=== PATIENT | male | born 1925 | race Caucasian/White ===

== ENCOUNTER 2017-06-03 16:47 | Inpatient (IN) | payer MEDICARE, BC ==
[~2017-06-03] VITALS: Ht 180.3 cm; Wt 43.4 kg
--- NOTE | ~2017-06-03 | EKG ---
PATIENT: NOEMI ABRAHAM UNIT #: [id number] Ventricular Rate: 149 BPM Atrial Rate: 133 BPM QRS Duration: 96 ms Q-T Interval: 324 ms QTC Calculation(Bezet): 510 ms Calculated R [place]: -8 degrees Calculated T [place]: 88 degrees Diagnosis Line: Atrial fibrillation with rapid ventricular Diagnosis Line: response Diagnosis Line: Low voltage QRS Diagnosis Line: Nonspecific ST and T wave abnormality , probably Diagnosis Line: digitalis effect Diagnosis Line: Abnormal ECG Diagnosis Line: Diagnosis Line: Confirmed by DONNELL NEIL MD ([id number]) on 06/08/2017 Diagnosis Line: 6:55:04 AM INTERPRETING MD: RASHAAD BRENNAN
--- NOTE | ~2017-06-03 | CR72 ---
[facility] A Service of [facility] RADIOLOGY TEXT RESULTS PATIENT: NOEMI ABRAHAM JR LOCATION: [place] [address] : [birth year] UNIT #: [id number] AGE: [address]: Prashanth Streeter MD SEX: M ORDER DR: [id number] [facility] [address]. [place], [place] [address] [id number] MR#: [id number] Acc #: [id number] NAME: NOEMI ABRAHAM JR : 1925 SEX: M STUDY DATE/TIME: 06/04/2017 4:59 UNIT: [facility] ROOM: [facility] STUDY DESCRIPTION: CR Chest Single View Portable Attending Physician: Prashanth Streeter M.D. Ordering Physician: Prashanth Streeter M.D. Primary Care Physician: Sandi Haines M.D. MEDICAL IMAGING REPORT This report is preliminary unless electronic signature is present EXAM AP portable chest 06/04/2017 HISTORY Respiratory failure and chest pain which began 06/02/2017. Fell from a lawnmower and got hit by the lawnmower in the chest. COMPARISON AP portable chest 02/01/2014. FINDINGS Diffuse coarse interstitial thickening is seen throughout the left hemithorax which is a new finding since the prior exam. Emphysematous changes are present. Scarring or tenting of the right hemidiaphragm is unchanged, and the right lung appears relatively clear. Stable mild cardiomegaly and generalized thoracic aortic tortuosity. No visible pneumothorax. IMPRESSION 1. Diffuse and somewhat coarse interstitial changes throughout the left hemithorax may represent changes of atypical distribution of edema, pneumonia, or aspiration. 2. Emphysema with chronic right basilar scarring. 3. Chronic right apical lung scarring or fibrosis. Dictated by... Leslee Petersen M.D. THIS IS AN ELECTRONICALLY VERIFIED REPORT Leslee Petersen M.D. at 06/07/2017 8:42 AM [facility] A Service of [facility] RADIOLOGY TEXT RESULTS PATIENT: NOEMI ABRAHAM JR LOCATION: [facility] 329-01 : [birth year] UNIT #: [id number] AGE: [address]: Prashanth Streeter MD SEX: M ORDER DR: TD: 06/04/2017 08:14 JOB #: [id number] MEDICAL IMAGING REPORT Page 1 of 1 COPY
--- NOTE | ~2017-06-03 | CT2 ---
[facility] A Service of [facility] & [facility] RADIOLOGY TEXT RESULTS PATIENT: NOEMI ABRAHAM JR LOCATION: [facility] 329-01 : [birth year] UNIT #: [id number] AGE: [address]: Prashanth Streeter MD SEX: M ORDER DR: [id number] [facility] [address]. [place], [place] [address] [id number] E MR#: [id number] Acc #: [id number] NAME: NOEMI ABRAHAM JR : 1925 SEX: M STUDY DATE/TIME: 06/03/2017 17:17 UNIT: [facility] ROOM: STUDY DESCRIPTION: CT Abd and Pelv W Cont Attending Physician: Chadd Santo M.D. Ordering Physician: Chadd Santo M.D. Primary Care Physician: Sandi Haines M.D. MEDICAL IMAGING REPORT This report is preliminary unless electronic signature is present EXAM CT abdomen and pelvis, 06/03/2017. HISTORY Fell off lawnmower today prior to arrival, complains of chest, abdomen and pelvis pain/lower chest pain, upper abdomen pain, mower flipped back and hit patient in chest and abdomen. TECHNIQUE CT of the abdomen and pelvis performed with intravenous administration of 100 mL Isovue-370. This CT exam was performed with one or more of the following radiation dose reduction techniques: automatic exposure control, adjustment of mA and/or kV according to patient size, and iterative reconstruction. COMPARISON 12/24/2016. Please see today's dedicated CT of the chest for full discussion of findings above the diaphragm. FINDINGS There are small bilateral pleural effusions. Greater in volume on the right than the left incompletely visualized on this examination. Airspace disease at the right lung base probably atelectatic in nature. Much more extensive airspace disease with extensive airspace consolidation in the left lower lobe concerning for left lower lobe pneumonia. Correlate with any clinical concern for aspiration. The inferior heart and pericardium suggest heart upper limits of normal in size to borderline enlarged. The liver shows no suspicious abnormality. Status post cholecystectomy with minimal central biliary ductal prominence. Stable and likely physiologic. No obstructing process seen. Spleen, adrenal glands unremarkable. Atrophic fatty infiltrated pancreas. Stable. Kidneys show no acute abnormality. [facility] A Service of [facility] & [facility] RADIOLOGY TEXT RESULTS PATIENT: NOEMI ABRAHAM JR LOCATION: [facility] 329-01 : [birth year] UNIT #: [id number] AGE: [address]: Prashanth Streeter MD SEX: M ORDER DR: CT PELVIS: No inguinal adenopathy. There is a suggestion of at least small right hydrocele. Urinary bladder unremarkable. Bilateral inguinal hernias. Distal small bowel extends into the right inguinal hernia. No obstruction. The distal colon extends in the left inguinal hernia. No obstruction. Similar appearance on prior examination. Trace free fluid in the pelvis. Not a drainable fluid collection. Etiology and significance unclear. There is no pelvic or retroperitoneal adenopathy. The distal esophagus, stomach, small bowel show some loops of abnormally dilated and thickened small bowel in the central and right paracentral low abdomen/upper pelvis. The involved small bowel measures up to about 2.9 cm in maximum diameter. There is associated wall thickening. There is fecalization of small bowel contents at this level. There is no clear indication of small bowel obstruction. This may represent an localized distal small bowel ileal enteritis. Correlate clinically. Finding could be further evaluated with repeat CT examination using enteric contrast or standard small-bowel follow-through. The patient appears to retain normal appendix. Vektopon-qu-qsfaj stool burden in the colon, without pathologic colonic dilatation. Probably physiologic or reflecting constipation. There is stool seen throughout colon to rectum. Uncomplicated sigmoid diverticulosis. There is no adenopathy. The aorta is normal in caliber. There is a subcutaneous nodule left paracentral anterior pubic region likely cutaneous inclusion cyst. Unchanged from prior study. Bony structures show no fracture. IMPRESSION 1. Abnormal examination. Please see the complete dictation above for full details and please see separately dictated CT of the chest for full discussion of findings above the diaphragm. There are at least small bilateral pleural effusions right greater than left. There is dense airspace disease in the left lower lobe most likely reflecting pneumonia. Correlate with any clinical concern for aspiration. Atelectatic change at the right lung base. 2. There is no clear indication of solid organ traumatic injury in the abdomen or pelvis. There are postoperative changes of cholecystectomy. 3. Abnormal appearance of a relatively long loop of distal ileum in the right lower quadrant. It is abnormally distended measuring up to about 3.2 cm in diameter. There is wall thickening and there is fecalized material within this segment of small bowel. This is a new finding. There is no evidence of obstruction. There is clearly air and bowel content within the distal small bowel. The appearance is nonspecific and probably reflects a segment of inflamed ileum of infectious or inflammatory etiology. It could best be further evaluated with repeat CT examination using enteric contrast for small bowel follow-through when clinically appropriate for the patient. 4. There are small bilateral inguinal hernias containing distal small bowel on right and distal colon on the left. No change from December 2016, and no resulting obstruction. 5. Moderate to large stool burden throughout colon. Similar appearance [facility] A Service of [facility] RADIOLOGY TEXT RESULTS PATIENT: NOEMI ABRAHAM JR LOCATION: [place] [address] : [birth year] UNIT #: [id number] AGE: [address]: Prashanth Streeter MD SEX: M ORDER DR: on prior study. No pathologic dilatation. Probably physiologic in nature reflecting constipation. Correlate clinically. 6. Uncomplicated sigmoid diverticulosis. 7. No fracture. 8. Incompletely visualized small right hydrocele. 9. Please see remainder of ancillary findings in body of report above. Dictated by... Shun Huffman M.D. THIS IS AN ELECTRONICALLY VERIFIED REPORT Shun Huffman M.D. at 06/07/2017 10:43 AM STEPHANIE/anibal TD: 06/04/2017 00:01 JOB #: [id number] MEDICAL IMAGING REPORT Page 1 of 1 COPY
--- NOTE | ~2017-06-03 | CT71 ---
[facility] A Service of [facility] RADIOLOGY TEXT RESULTS PATIENT: NOEMI ABRAHAM JR LOCATION: [facility] 329-01 : [birth year] UNIT #: [id number] AGE: [address]: Prashanth Streeter MD SEX: M ORDER DR: [id number] [facility] [address]. [place], [place] [address] [id number] E MR#: [id number] Acc #: [id number] NAME: NOEMI ABRAHAM JR : 1925 SEX: M STUDY DATE/TIME: 06/03/2017 18:55 UNIT: [facility] ROOM: STUDY DESCRIPTION: CT Head Wo Contrast Attending Physician: Chadd Santo M.D. Ordering Physician: Chadd Santo M.D. Primary Care Physician: Sandi Haines M.D. MEDICAL IMAGING REPORT This report is preliminary unless electronic signature is present EXAM CT head, 06/03/[address] exam was performed with one or more of the following radiation dose reduction techniques: automatic exposure control, adjustment of mA and/or kV according to patient size, and iterative reconstruction. FINDINGS CT head performed skull base through vertex without intravenous contrast. Patient indicates fell off riding lawnmower today prior to arrival. Complains of chest, abdomen and pelvis pain. Lower chest pain, upper abdomen pain, mower flipped back and hit patient in chest and abdomen. CT head performed skull base through vertex without intravenous contrast. Comparison 10/14/2016. The study degraded by streak/motion artifact. There is streak artifact from monitoring equipment overlying the patient's head which was not removed prior to the examination. The brainstem is unremarkable. The cerebellum and cerebral hemispheres show normal singh matter-white matter differentiation. No hemorrhage. There is no evidence of acute cortical ischemia. The midline structures are nondisplaced. No acute-appearing basal ganglia abnormality. Periventricular and deep white matter tract probable sequelae of chronic microvascular ischemia unchanged. Ventricles, cisterns and sulci show moderate generalized enlargement consistent with moderate generalized atrophy. Probable arachnoid cyst posterior fossa, unchanged. Vascular calcifications. No fracture. Mucosal thickening right sphenoid sinus. No indication of acute sinusitis. Intraorbital soft tissues unremarkable. IMPRESSION STS. [facility] A Service of [facility] & [facility] RADIOLOGY TEXT RESULTS PATIENT: NOEMI ABRAHAM JR LOCATION: [facility] 329-01 : [birth year] UNIT #: [id number] AGE: [address]: Prashanth Streeter MD SEX: M ORDER DR: 1. No acute abnormality seen in brain. No change in appearance from October 2016. Chronic changes include: Moderate generalized atrophy, periventricular and deep white matter tract probable sequelae of chronic microvascular ischemia, vascular calcifications. 2. No fracture. 3. See remainder of ancillary findings in body of report above. Dictated by... Shun Huffman M.D. THIS IS AN ELECTRONICALLY VERIFIED REPORT Shun Huffman M.D. at 06/07/2017 10:43 AM Dale TD: 06/03/2017 23:22 JOB #: [id number] MEDICAL IMAGING REPORT Page 1 of 1 COPY
--- NOTE | ~2017-06-03 | EKG ---
PATIENT: NOEMI ABRAHAM UNIT #: [id number] Ventricular Rate: 93 BPM Atrial Rate: 357 BPM QRS Duration: 100 ms Q-T Interval: 346 ms QTC Calculation(Bezet): 430 ms Calculated R [place]: 29 degrees Calculated T [place]: 18 degrees Diagnosis Line: Atrial fibrillation Diagnosis Line: Low voltage QRS Diagnosis Line: Abnormal ECG Diagnosis Line: When compared with ECG of 06-JUN-2017 07:10, Diagnosis Line: (unconfirmed) Diagnosis Line: No significant change was found Diagnosis Line: Confirmed by DONNELL NEIL MD ([id number]) on 06/08/2017 Diagnosis Line: 11:36:43 PM INTERPRETING MD: RASHAAD BRENNAN
--- NOTE | ~2017-06-03 | A ---
[facility] Nutrition Therapy DATE: 06/04/17 Patient: NOEMI ABRAHAM Physician: EDILSON Address: [address] Room/Bed: [address], Zip: [place] [id number] Admit Date: 06/04/17 Date of : [birth year] Height: 5 11 Weight: 100 45.5 NUTRITIONAL ASSESSMENT: REASON: LOW BMI + NPO IN ICU ASSESSMENT PT IS 89 Y.O. MALE ADMITTED FOR HEART FAILURE, PNA PMH: NO H&P IN [facility]. PER CHART: CHRONIC AFIB, HX OF LUNG CANCER, GERD, HYPOTHYROIDISM Anthropometrics: 5'11", WT: 132# (PER PT & FAMILY) (60 KG), BMI: 18.4, 77%IBW Labs: GLU: 142, CA+:8.1, ALB: 3.1 Meds: NACL, PROTONIX, SYNTHROID (PO), FUROSEMIDE I/O & Bowel function: -/350 Skin Integrity: ABRASIONS NOTED BILATERAL KNEES Estimated Nutrition Needs: INCREASED NEEDS 2' PT UNDERWEIGHT, PMH, CURRENT CONDITION Assessment: CHART REVIEWED AND EVENTS NOTED. PT SEEN FOR UNDERWEIGHT STATUS + NPO IN ICU. PT CURRENTLY NPO 2' BIPAP. PT ABLE TO COMMUNICATE DIET HISTORY. PT AND FAMILY AT BEDSIDE REPORT PT TO HAVE PRIOR GOOD PO INTAKE AND APPETITE, NOTING NO C/O N/V/D. PT AND FAMILY DENY ANY RECENT WEIGHT LOSS, NOTES PT HAS ALWAYS BEEN "SMALL". PT ADDS HE DID LOSE ~30# "YEARS AGO". THIS RD ENCOURAGED SLOW GRADUAL PO INTAKE + SMALL FREQUENT MEALS ONCE DIET ADVANCES, PT AGREED. PLANS IN PLACE FOR DIET ADVANCEMENT ONCE BIPAP D/C'D. PT AND FAMILY REPORTED NO DIET QUESTIONS AT THIS TIME. RD TO FOLLOW. SEE RECOMMENDATIONS BELOW. Dx: 1. UNDERWEIGHT R/T PMH, ADVANCED AGE AEB LOW BMI OF 18.4, 77%IBW. 2. ALTERED NUTRIENT NEEDS R/T CURRENT DIAGNOSIS, CURRENT CLINICAL CONDITION AEB NPO STATUS. Intervention: 1. NPO Monitoring, Evaluation and Goals: 1. ORAL INTAKE; ADVANCE DIET AND CONSUME/TOLERATE >50% OF MEALS 2. WEIGHTS; PROMOTE GRADUAL WEIGHT GAIN TOWARDS HEALTHY BMI; PREVENT WEIGHT LOSS 3. LABS; WNL MONITOR: -DIET ADVANCEMENT/PO INTAKE -WEIGHTS [facility] Nutrition Therapy DATE: 06/04/17 Patient: NOEMI Eckert LEIGH MCGINNIS Physician: EDILSON Address: [address] Room/Bed: [address], Zip: [place] [address] Admit Date: 06/04/17 Date of : [birth year] Height: 5 11 Weight: 100 45.5 -LABS Recommendations: 1. ONCE MEDICALLY FEASIBLE, BEGIN WITH CLEARS AND ADVANCE DIET TOLERATED TO REGULAR 2. ORDER APPROPRIATE SUPPLEMENTS (ENSURE ENLIVE, PUDDING, CLEAR, MAGIC CUP) BID FOR ADDITIONAL PROTEIN AND KCAL 3. CONSIDER ORDERING MVI W/MINERAL DAILY TO PT'S CURRENT MEDICATION REGIMEN 2' ADVANCED AGE, UNDERWEIGHT STATUS RD WILL F/U PER PROTOCOL PT IS MILDLY COMPROMISED Respectfully, RADHA BONNER MS, RD, LD Food and Nutrition[facility] Services [facility] cc: client file
--- NOTE | ~2017-06-03 | EKG ---
PATIENT: NOEMI ABRAHAM UNIT #: [id number] Ventricular Rate: 96 BPM Atrial Rate: 214 BPM QRS Duration: 100 ms Q-T Interval: 380 ms QTC Calculation(Bezet): 480 ms Calculated R [place]: 5 degrees Calculated T [place]: 0 degrees Diagnosis Line: Atrial fibrillation with premature ventricular or Diagnosis Line: aberrantly conducted complexes Diagnosis Line: Nonspecific T wave abnormality , probably Diagnosis Line: digitalis effect Diagnosis Line: Prolonged QT Diagnosis Line: Abnormal ECG Diagnosis Line: When compared with ECG of 07-JUN-2017 06:11, Diagnosis Line: (unconfirmed) Diagnosis Line: Nonspecific T wave abnormality now evident in Diagnosis Line: Anterior leads Diagnosis Line: Confirmed by DONNELL NEIL MD ([id number]) on 06/09/2017 Diagnosis Line: 12:00:47 AM INTERPRETING MD: RASHAAD BRENNAN
--- NOTE | ~2017-06-03 | EKG ---
PATIENT: NOEMI ABRAHAM UNIT #: [id number] Ventricular Rate: 125 BPM Atrial Rate: 138 BPM QRS Duration: 86 ms Q-T Interval: 286 ms QTC Calculation(Bezet): 412 ms Calculated R [place]: -18 degrees Calculated T [place]: -97 degrees Diagnosis Line: Atrial fibrillation with rapid ventricular Diagnosis Line: response with premature ventricular or aberrantly Diagnosis Line: conducted complexes Diagnosis Line: Nonspecific ST and T wave abnormality Diagnosis Line: Abnormal ECG Diagnosis Line: When compared with ECG of 03-JUN-2017 22:32, Diagnosis Line: (unconfirmed) Diagnosis Line: Atrial fibrillation has replaced Normal sinus Diagnosis Line: rhythm Diagnosis Line: Criteria for Septal infarct are no longer Present Diagnosis Line: Confirmed by DONNELL NEIL MD ([id number]) on 06/05/2017 Diagnosis Line: 8:26:08 AM INTERPRETING MD: RASHAAD BRENNAN
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
--- NOTE | ~2017-06-03 | EKG ---
PATIENT: NOEMI ABRAHAM UNIT #: [id number] Ventricular Rate: 104 BPM Atrial Rate: 110 BPM QRS Duration: 92 ms Q-T Interval: 368 ms QTC Calculation(Bezet): 483 ms Calculated R Adena: 17 degrees Calculated T Adena: 40 degrees Diagnosis Line: Atrial fibrillation with rapid ventricular Diagnosis Line: response Diagnosis Line: Low voltage QRS Diagnosis Line: Nonspecific ST abnormality , probably digitalis Diagnosis Line: effect Diagnosis Line: Abnormal ECG Diagnosis Line: When compared with ECG of 05-JUN-2017 08:31, Diagnosis Line: (unconfirmed) Diagnosis Line: No significant change was found Diagnosis Line: Confirmed by DONNELL NEIL MD ([id number]) on 06/08/2017 Diagnosis Line: 10:48:15 PM INTERPRETING MD: RASHAAD BRENNAN
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
--- NOTE | ~2017-06-03 | DS ---
Unit #: [id number] #: [id number] Patient: NOEMI ABRAHAM JR [id number] [address] [place], [place] [address] [id number] MR#: [id number] NAME: NOEMI ABRAHAM JR ROOM: 329 Age: 89 Sex: M Admission Date: 06/04/2017 : 1925 Discharge Date: 06/08/2017 Attending Physician: Prashanth Streeter M.D. Primary Care Physician: Sandi Haines M.D. DISCHARGE SUMMARY DISCHARGE DIAGNOSES 1. Acute hypoxemic respiratory failure. Now requiring oxygen. 2. Abnormal CAT scan, consistent with pneumonia. 3. Fall from his riding lawnmower with contusions and lacerations. 4. Abnormal CAT scan with right upper lobe nodular mass-like area. 5. Remote history of lung cancer. Details unknown, but apparently underwent some sort of resection. 6. Emphysema. 7. Hypothyroidism. 8. Benign prostatic hypertrophy suspected, given his medication list. 9. Atrial fibrillation with rapid ventricular response, with normal left ventricular function. 10. Pulmonary hypertension. DIAGNOSTIC DATA CARDIOVASCULAR: Echocardiogram, normal left ventricular function. Estimated RVSP 57. Mild to moderate mitral regurgitation. IMAGING: CT scan of his chest revealed emphysema. Right upper lobe nodular density. Unclear chronicity. Also showed left lower lobe and left upper lobe pneumonia. No evidence of acute fractures. CT scan of the abdomen, small bilateral pleural effusions. Chest finding as above. No evidence of traumatic injury. CT head no acute abnormality. FOLLOWUP 1. Dr. Yung's nurse practitioner in two weeks. 2. Dr. Yung in six to eight weeks. 3. I would suggest a CT scan of his chest in three to four months. 4. Dr. Heath as she desires. 5. Dr. Haines in one to two weeks for general medical care. DISCHARGE MEDICATIONS 1. Albuterol inhaler 2 puffs q.i.d. p.r.n. 2. Spiriva 1 capsule inhaled daily. Watch for urinary retention. 3. Flomax 0.4 mg daily. 4. Xarelto 15 mg at night. 5. Celexa 40 mg daily. 6. Beta pace 80 mg b.i.d. 7. Lasix 20 mg b.i.d. 8. Aspirin 81 mg daily. 9. He is on Lortab p.r.n. at home. Unit #: [id number] #: [id number] Patient: NOEMI ABRAHAM JR 10. Protonix 40 mg daily. 11. Synthroid 25 mcg daily. 12. Augmentin 875 mg b.i.d. for 4 days. 13. Zithromax 250 mg daily for 4 days. 14. He will wear oxygen 2 liters 24 hours daily. ACTIVITY Oxygen 24 hours daily. DIET As tolerated. DISPOSITION Home. He declines rehab. He has gotten much stronger over the last day or two. HOSPITAL COURSE Please see chart for details. He was apparently on his lawnmower, fell and had multiple contusions and lacerations, but no fractures or severe injury. He was found to have acute hypoxemic respiratory failure, bilateral pleural effusions, atrial fibrillation. Cardiology was consulted and evaluated him. He underwent treatment for atrial fibrillation and diuresis. It was felt that he had pneumonia. He did have several day history prior to this fall of feeling poorly and other symptoms of infection. He was treated with antibiotics. Legionella and strep urine antigens were negative. He slowly improved. He was transferred to telemetry. We discussed the possibility of rehab, but he declined. He increased his ambulation and states he was able to perform all activities of daily living at the time of discharge. He states that family is present nearby and basically declines any type of rehab. Dr. Heath saw the patient yesterday and felt the patient was okay for discharge. Room air saturations were checked after he received maximal hospital benefit and they remained low at 86%-88% and oxygen will be arranged. Certainly, given his pulmonary hypertension we want to ensure adequate saturations. Evaluation of nocturnal saturations can be performed as an outpatient. Dictated by... Hank Yung M.D. REI/apple TD: 06/11/2017 08:19 JOB #: [id number] CC: Donna Brian M.D. Stacy R. Trinkle, M.D. Unit #: [id number] #: [id number] Patient: NOEMI ABRAHAM JR DISCHARGE SUMMARY Page 1 of 1 X Hank Yung MD DISCHARGE SUMMARY
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
[~2017-06-03 16:47] MED LIST: NOT RECONCILED; TYLOX1 CAP 5/50 PO
[2017-06-03 17:53] LABS: BASOPHIL% 0.4 % (0-2.5); EOSINOPHIL% 0.7 % (0.0-7.0); HEMATOCRIT 38.7 % (38.0-50.0); HEMOGLOBIN 12.6 gm/dL (13.0-16.0); LYMPHOCYTE# 0.5 X10e3 (1.0-3.5); LYMPHOCYTE% 7.7 % (17.0-45.0); MEAN CELL VOLUME 85.9 FL (83-96); MEAN CORPUSCULAR HEMOGLOBIN 27.9 PG (28-34); MEAN CORPUSCULAR HGB CONC 32.5 g/dL (30-36); MEAN PLATELET VOLUME 9.8 FL (6.5-11.5); MONOCYTE# 0.6 X10e3 (0-1.0); MONOCYTE% 8.6 % (3.0-12.0); NEUTROPHIL# 5.7 X10e3 (1.5-7.1); NEUTROPHIL% 82.6 % (40-75); PLATELET COUNT 210 X10e3 (140-420); RED CELL DISTRIBUTION WIDTH 16.5 % (11.0-15.5); WHITE BLOOD COUNT 6.9 X10e3 (4.0-10.5)
[2017-06-03 18:03] LABS: DIFF IND NO
[2017-06-03 18:09] LABS: INR 1.5; PARTIAL THROMBOPLASTIN TIME 29.9 SECONDS (23.5-31.3); PROTHROMBIN TIME (PATIENT) 16.1 SECONDS (10.0-11.7)
[2017-06-03 18:18] LABS: ALBUMIN SERUM 3.1 g/dL (3.5-5.0); BILIRUBIN, DIRECT 0.2 mg/dL (0.0-0.2); BILIRUBIN,INDIRECT 0.1 mg/dL (0.0-0.9); BILIRUBIN,TOTAL 0.3 mg/dL (0.2-2.0); CALCIUM SERUM 8.5 mg/dL (8.4-10.2); GLOM FILT RATE Estimated 66.4 mL/min (>60); POTASSIUM 4.1 mmol/L (3.5-5.1); PROTEIN TOTAL SERUM 6.8 g/dL (6.0-8.3)
[2017-06-03 22:55] LABS: POC - CKMB 1.6 ng/mL (0.0-7.9); POC - TROPONIN <0.05 ng/mL (<=0.05)
[2017-06-03] MEDS ORDERED: CITALOPRAM HBR40 M1 PO (23:16)
[2017-06-03] MEDS ORDERED: ZIAC PO (23:17)
[2017-06-03] MEDS ORDERED: LEVOTHYROXINE25 MCG PO (23:17)
[2017-06-03] MEDS ORDERED: LORCET PLUS 7.1 EACH PO (23:19)
[2017-06-03] MEDS ORDERED: FLOMAX0.4 M1 PO (23:19)
[2017-06-03] MEDS ORDERED: PROTONIX PO (23:20)
[2017-06-03] MEDS ORDERED: XARELTO15 MG PO (23:20)
[2017-06-03] MEDS ORDERED: LO-DOSE ASPIRIN81 M1 PO (23:21)
[2017-06-04 05:42] LABS: BASOPHIL% 0.1 % (0-2.5); EOSINOPHIL% 0.1 % (0.0-7.0); HEMATOCRIT 34.4 % (38.0-50.0); HEMOGLOBIN 11.2 gm/dL (13.0-16.0); LYMPHOCYTE# 0.3 X10e3 (1.0-3.5); LYMPHOCYTE% 2.1 % (17.0-45.0); MEAN CELL VOLUME 85.8 FL (83-96); MEAN CORPUSCULAR HGB CONC 32.7 g/dL (30-36); MEAN PLATELET VOLUME 9.9 FL (6.5-11.5); MONOCYTE# 0.9 X10e3 (0-1.0); MONOCYTE% 6.8 % (3.0-12.0); NEUTROPHIL# 12.4 X10e3 (1.5-7.1); NEUTROPHIL% 90.9 % (40-75); PLATELET COUNT 179 X10e3 (140-420); RED CELL DISTRIBUTION WIDTH 16.6 % (11.0-15.5)
[2017-06-04 05:54] LABS: DIFF IND NO; WHITE BLOOD COUNT 13.6 X10e3 (4.0-10.5)
[2017-06-04 06:31] LABS: BUN/CREATININE RATIO 22.22; CALCIUM SERUM 8.1 mg/dL (8.4-10.2); CREATININE SERUM 0.9 mg/dL (0.6-1.4); GLOM FILT RATE Estimated 75.5 mL/min (>60); POTASSIUM 3.6 mmol/L (3.5-5.1)
[2017-06-05 05:18] LABS: BASOPHIL% 0.1 % (0-2.5); EOSINOPHIL# 0.1 X10e3 (0-0.7); EOSINOPHIL% 0.9 % (0.0-7.0); HEMATOCRIT 30.3 % (38.0-50.0); HEMOGLOBIN 9.9 gm/dL (13.0-16.0); LYMPHOCYTE# 0.3 X10e3 (1.0-3.5); MEAN CELL VOLUME 85.2 FL (83-96); MEAN CORPUSCULAR HEMOGLOBIN 27.9 PG (28-34); MEAN CORPUSCULAR HGB CONC 32.7 g/dL (30-36); MONOCYTE# 0.9 X10e3 (0-1.0); MONOCYTE% 10.5 % (3.0-12.0); NEUTROPHIL# 7.4 X10e3 (1.5-7.1); NEUTROPHIL% 85.5 % (40-75); PLATELET COUNT 153 X10e3 (140-420); RED BLOOD COUNT 3.55 X10e (3.90-5.60); RED CELL DISTRIBUTION WIDTH 16.7 % (11.0-15.5); WHITE BLOOD COUNT 8.7 X10e3 (4.0-10.5)
[2017-06-05 05:51] LABS: DIFF IND NO
[2017-06-05 06:22] LABS: CALCIUM SERUM 8.1 mg/dL (8.4-10.2); CREATININE SERUM 0.8 mg/dL (0.6-1.4); GLOM FILT RATE Estimated 79.2 mL/min (>60); POTASSIUM 3.7 mmol/L (3.5-5.1)
[2017-06-06 06:56] LABS: BUN/CREATININE RATIO 27.5; CALCIUM SERUM 8.3 mg/dL (8.4-10.2); CREATININE SERUM 0.8 mg/dL (0.6-1.4); GLOM FILT RATE Estimated 79.2 mL/min (>60); POTASSIUM 3.8 mmol/L (3.5-5.1)
[2017-06-07 06:07] LABS: BUN/CREATININE RATIO 31.42; CALCIUM SERUM 8.2 mg/dL (8.4-10.2); CREATININE SERUM 0.7 mg/dL (0.6-1.4); GLOM FILT RATE Estimated 83.7 mL/min (>60); POTASSIUM 3.6 mmol/L (3.5-5.1)
[2017-06-08] MEDS ORDERED: LASIX20 MG PO (15:08)
[2017-06-08] MEDS ORDERED: BETAPACE80 MG PO (15:08)
[2017-06-08] MEDS ORDERED: REFRESH5 ML (15:09)
[2017-06-08] MEDS ORDERED: AUGMENTIN PO (15:10)
[2017-06-08] MEDS ORDERED: SPIRIVA18 MCG INH (15:10)
[2017-06-08] MEDS ORDERED: AZITHROMYCIN250 MG PO (15:10)
[2017-06-08] MEDS ORDERED: PROAIR HFA8.5 GM INH (15:11)
== END 2017-06-08 17:57 | disposition home health service (06) | DRG 193 ==
LOC: CED 16:47 → C3A PCU 06-04 00:18 → CEDOF 06-04 00:18 → CICCU2 06-04 00:18 → C3A PCU 06-05 19:35
PROVIDERS: Emergency Medicine; Internal Medicine; Internal Medicine Cardiovascular Disease
DX: J18.9 Pneumonia, unspecified organism (principal); J96.01 Acute respiratory failure with hypoxia; J90 Pleural effusion, not elsewhere classified; I48.2 Chronic atrial fibrillation; J43.9 Emphysema, unspecified; E03.9 Hypothyroidism, unspecified; F41.9 Anxiety disorder, unspecified; F32.9 Major depressive disorder, single episode, unspecified; S20.219A Contusion of unspecified front wall of thorax, initial encounter; W19.XXXA Unspecified fall, initial encounter; I08.3 Combined rheumatic disorders of mitral, aortic and tricuspid valves; I27.2 Other secondary pulmonary hypertension; Z88.2 Allergy status to sulfonamides; I50.9 Heart failure, unspecified; Z85.118 Personal history of other malignant neoplasm of bronchus and lung; Z87.891 Personal history of nicotine dependence
CPT/HCPCS: 12001; 36415; 70450; 71010; 71260; 74177; 80048; 80076; 82553; 83605; 83880; 84443; 84484; 85025; 85610; 85730; 87040; 87449; 87899; 92526; 92610; 93005; 93306; 94640; 94660; 94760; 96361; 96365; 96375; 96376; 97110; 97116; 97162; 97166; 97530; 97535; 99291; 99292; G8978-GP; G8979-GP; G8987-GO; G8988-GO; G8996-GN; G8997-GN; G8998-GN; J0456; J1940; J2270; J2543; J3260; J3370; Q9967